=== PATIENT | male | born 1990 | race Caucasian/White ===

== ENCOUNTER → 2021-06-06 10:15 | Outpatient (CLI) | payer OTHER, SELFPAY ==
--- NOTE | ~2021-06-06 | US_ITS ---
EXAMINATION: US abdomen complete DATE: 06/06/2021 10:39 INDICATION: Gallbladder polyp in right upper quadrant pain TECHNIQUE: Multiple grayscale and Doppler ultrasound images of the abdomen were obtained. COMPARISON: None available FINDINGS: The head and body of the pancreas are normal. The pancreatic tail is obscured by bowel gas. The liver is normal with normal echogenicity and echotexture. No surface nodularity. Normal hepatope carmen flow in the main portal vein. There are multiple polyps of the gallbladder which measure up to 4 mm. There is no pericholecystic fluid. The normal common bile duct measures 4 mm. There was no sonogr aphic Quarles sign. The visualized portions of the aorta and inferior vena cava are normal. The right kidney measures 11.5 x 4.8 x 6.6 cm. The left kidney measures 10.6 x 5.0 x 6.1 cm. The kidn eys demonstrate normal parenchymal echogenicity. There is no hydronephrosis. The spleen is normal in appearance and measures 10.0 cm. IMPRESSION: 1. Multiple gallbladder polyps. No sonographic correlate for right upper quadrant pain. Reviewed, dictated and finalized at location A. IMPRESSION: 1. Multiple gallbladder polyps. No sonographic correlate for right upper quadra nt pain.
== END ==
PROVIDERS: PCP Emergency Medicine; Visit Provider Emergency Medicine
DX: R10.9 Unspecified abdominal pain (principal); K82.4 Cholesterolosis of gallbladder
CPT/HCPCS: 76700

== ENCOUNTER 2021-07-11 07:23 | Outpatient (CLI) | payer OTHER, SELFPAY ==
--- NOTE | ~2021-07-11 | NM_ITS ---
EXAMINATION: NM hepatobiliary wo pharm DATE: 07/11/2021 09:59 INDICATION: Cholesterolosis of the gallbladder. Cholelithiasis. COMPARISON: None. TECHNIQUE: 5.18 mCi Tc-99m mebrofenin (Choletec) was administered intravenously. Scintigraphic image s of the abdomen were obtained for one hour. At the 1 hour time point, the patient drank 8 oz Ensure, and imaging was continued for 60 minutes. Gallbladder ejection fraction was calculated by the techno logist. FINDINGS: There is normal clearance of radiotracer from the blood pool. There is homogeneous tracer u ptake by the liver. Activity progresses to the bowel and gallbladder. The gallbladder ejection fract ion (GBEF) is 77%. Note that with this technique, normal GBEF >= 33%. IMPRESSION: 1. Normal hepatobiliary scan. Reviewed, dictated and finalized at location A. [employer]
== END 2021-07-11 07:24 | disposition home or self-care (01) ==
PROVIDERS: PCP Emergency Medicine; Visit Provider Emergency Medicine
DX: K82.4 Cholesterolosis of gallbladder (principal)
CPT/HCPCS: 78226; A9537